=== PATIENT | male | born 1985 | race Caucasian/White ===

== ENCOUNTER 2018-01-24 07:22 | Emergency (ER) | payer OTHER ==
[~2018-01-24] VITALS: Ht 180.3 cm; Wt 113.4 kg
[2018-01-24 07:34] VITALS: BP 128/44
[2018-01-24] MEDS ORDERED: PREDNISONE 20 M20 M1 PO (07:51)
[2018-01-24] MEDS ORDERED: ZPAK PO (07:51)
== END 2018-01-24 07:59 | disposition home or self-care (01) ==
LOC: M.ERS 07:22
DX: J06.9 Acute upper respiratory infection, unspecified (principal)

== ENCOUNTER 2021-08-26 08:46 | Emergency (ER) | payer OTHER ==
[~2021-08-26] VITALS: Ht 180.3 cm; Wt 96.2 kg
[~2021-08-26 08:46] MED LIST: PREDNISONE 20 M20 M1 PO; ZPAK PO
[2021-08-26] MEDS ORDERED: ERYTHROMYCIN E3.5 G3 OPHTHALMIC (09:17)
[2021-08-26 09:30] VITALS: BP 124/72
== END 2021-08-26 09:30 | disposition home or self-care (01) ==
LOC: M.ERS 08:46
DX: S05.01XA Injury of conjunctiva and corneal abrasion without foreign body, right eye, initial encounter (principal); W50.4XXA Accidental scratch by another person, initial encounter; Y93.89 Activity, other specified; Y92.89 Other specified places as the place of occurrence of the external cause; Y99.8 Other external cause status